=== PATIENT | female | born 1960 | race Hispanic/Latino ===

== ENCOUNTER 2017-03-08 15:21 | Outpatient (CLI) | payer BC ==
--- NOTE | 2017-03-09 07:59 | Ultrasound Report ---
RIGHT UPPER QUADRANT ABDOMINAL ULTRASOUND: 03/08/17 15:21:00 CLINICAL: Elevated liver function tests. FINDINGS: High-resolution ultrasound demonstrated an enlarged liver with marked diffuse increased echogenicity. No liver mass. Normal hepatic vasculature and inferior vena cava. Normally distended gallbladder and a 1.5 cm shadowing calculus. The gall bladder wall measures 1.4 mm in thickness. Normal intrahepatic and extra hepatic bile ducts. The common bile duct measures 6.3 mm diameter. Normal pancreatic head and proximal body. The pancreatic tail is obscured by bowel gas. Normal upper abdominal aorta. The right kidney is normal and measures 10.4 x 4.1 x 4.9cm. No ascites or mass. IMPRESSION: Hepatomegaly and increased echogenicity consistent with hepatic steatosis. Cholelithiasis but no acute cholecystitis.
== END 2017-03-08 15:22 | disposition home or self-care (01) ==
LOC: SPVWC 15:21
PROVIDERS: ATTEND Internal Medicine
DX: K80.20 Calculus of gallbladder without cholecystitis without obstruction (principal); R16.0 Hepatomegaly, not elsewhere classified; R79.89 Other specified abnormal findings of blood chemistry
CPT/HCPCS: 76705